=== PATIENT | male | born 1950 | race Two or more races ===

== ENCOUNTER 2018-04-06 18:24 | Inpatient (IN) | payer MEDICAID ==
[~2018-04-06] VITALS: Ht 160 cm; Wt 68.0 kg
[2018-04-06] MEDS ORDERED: levETIRAcetam 500 MG in D5W 110 ML IV ONE (18:45)
[2018-04-06] MEDS ORDERED: LORazepam Inj 2mg/ml 1ml IV ONE (18:45)
[2018-04-06] MEDS ORDERED: levETIRAcetam 1,000mg/NS100ml 100 ML IVPB ONE (18:45)
[2018-04-06 19:01] VITALS: BP 106/43
[2018-04-06 19:07] LABS: APPEARANCE,URINE CLEAR; BILIRUBIN, URINE NEGATIVE (NEGATIVE); COLOR,URINE PALE YELLOW; GLUCOSE, URINE (UA) NEGATIVE (NEGATIVE); KETONES,URINE NEGATIVE (NEGATIVE); LEUKOCYTE ESTERASE ,URINE NEGATIVE (NEGATIVE); NITRITE,URINE NEGATIVE (NEGATIVE); PH,URINE 6.5 (4.5-8.0); PROTEIN,URINE NEGATIVE (NEGATIVE); UROBILINOGEN,URINE NORMAL MG/DL (0.0-1.0)
[2018-04-06 19:17] LABS: BASOPHILS % (AUTO) 1.1 % (0.0-2.0); EOSINOPHILS % (AUTO) 0.8 % (0.0-3.0); HEMATOCRIT 30.3 % (42.0-52.0); HEMOGLOBIN 10.4 G/DL (14.2-18.0); MEAN CORPUSCULAR VOLUME 88 FL (80-99); MONOCYTES % (AUTO) 7.5 % (1.0-10.0); NEUTROPHILS % (AUTO) 61.6 % (45.0-75.0); PLATELET COUNT 245 K/UL (150-450); RED BLOOD COUNT 3.43 M/UL (4.70-6.10); WHITE BLOOD COUNT 5.5 K/UL (4.8-10.8)
[2018-04-06 19:27] LABS: ANION GAP 11 mmol/L (5-15); BLOOD UREA NITROGEN 21 mg/dL (7-18); CALCIUM 9.6 MG/DL (8.5-10.1); CARBON DIOXIDE 24 MMOL/L (21-32); CHLORIDE 99 MMOL/L (98-107); CREATININE 0.9 MG/DL (0.55-1.30); POTASSIUM 4.1 MMOL/L (3.5-5.1); SODIUM 134 MMOL/L (136-145)
[2018-04-06 19:34] LABS: ALANINE AMINOTRANSFERASE 16 U/L (12-78); ALBUMIN 3.9 G/DL (3.4-5.0); ALBUMIN/GLOBULIN RATIO 0.9 (1.0-2.7); ALKALINE PHOSPHATASE 79 U/L (46-116); ASPARTATE AMINO TRANSFERASE 16 U/L (15-37); BILIRUBIN,TOTAL 0.3 MG/DL (0.2-1.0); CREATINE KINASE 86 U/L (26-308)
--- NOTE | 2018-04-06 21:46 | Emergency Room Report ---
History of Present Illness General Chief Complaint: Seizure Source: Patient Present Illness HPI Mr. Garibay is 67 yo male with hx of seizure, CVA and head injury who presents with seizure activity greater than 15 minutes. He received 5 mg of versed per EMS. He was unable to give much hx . He insists on taking his normal pain medication. He is curreny a resident of [facility]. Allergies: Coded Allergies: No Known Allergies (Unverified , 04/06/18) Patient History Limited by: language barrier - nursing staff provided italian interpretation, age Past Surgical History: other - CVA, seizure, head injury Pertinent Family History: unable to obtain Social History Narrative UTO Reviewed Nursing Documentation: PMH: Agreed Nursing Documentation-PMH Past Medical History: No History, Except For Hx Seizures: Yes Review of Systems All Other Systems: limited - altered mental status Physical Exam Vital Signs Date Time Temp Pulse Resp B/P (MAP) Pulse Ox O2 Delivery O2 Flow Rate FiO2 04/06/18 18:19 97.5 108 18 120/72 99 Room Air 97.5 Sp02 EP Interpretation: reviewed, normal General Appearance: lethargic, other - head and eyes deviated to right with left arm myoclonic jerking with left hand flexing repetitively Eyes: bilateral eye normal inspection, bilateral eye PERRL ENT: dry mucus membranes Neck: normal inspection, full range of motion Respiratory: normal breath sounds, no rhonchi, no respiratory distress, no retraction, no accessory muscle use Cardiovascular #1: no gallop, no murmur, tachycardia Cardiovascular #2: 2+ radial (R), 2+ radial (L) Gastrointestinal: non tender, soft, no guarding Neurologic: responsive Psychiatric: other - poor insight Skin: other - warm to touch Procedures Critical Care Time Critical Care Time 40 minutes of critical care time excluding procedures were used in the care of the patient. Concerned for persistent seizure and possible respiratory depression. Patient required multiple assessments and interventions. Medical Decision Making Diagnostic Impression: Primary Impression: Seizure ER Course mr. Garibay presents with continued seizure activity. Eventually he became alert and conversant. Although he was only able to give limited hx. Still had left myoclonic jerking on left upper extremity. He received IV keppra and IV ativan. Will need further monitoring for prolonged seizure activity. Myoclonus eventually subsided. Findings of encephalomalacia, chronic subdural collection and craniotomy seen on CT. I suspect baseline cognitive dysfunction. Dr. Duke accepted patient on behalf of Dr. Kaiser. Labs Test 04/06/18 18:32 04/06/18 18:35 White Blood Count 5.5 K/UL (4.8-10.8) Red Blood Count 3.43 M/UL (4.70-6.10) Hemoglobin 10.4 G/DL (14.2-18.0) Hematocrit 30.3 % (42.0-52.0) Mean Corpuscular Volume 88 FL (80-99) Mean Corpuscular Hemoglobin 30.3 PG (27.0-31.0) Mean Corpuscular Hemoglobin Concent 34.4 G/DL (32.0-36.0) Red Cell Distribution Width 13.0 % (11.6-14.8) Platelet Count 245 K/UL (150-450) Mean Platelet Volume 7.2 FL (6.5-10.1) Neutrophils (%) (Auto) 61.6 % (45.0-75.0) Lymphocytes (%) (Auto) 29.0 % (20.0-45.0) Monocytes (%) (Auto) 7.5 % (1.0-10.0) Eosinophils (%) (Auto) 0.8 % (0.0-3.0) Basophils (%) (Auto) 1.1 % (0.0-2.0) Sodium Level 134 MMOL/L (136-145) Potassium Level 4.1 MMOL/L (3.5-5.1) Chloride Level 99 MMOL/L (98-107) Carbon Dioxide Level 24 MMOL/L (21-32) Anion Gap 11 mmol/L (5-15) Blood Urea Nitrogen 21 mg/dL (7-18) Creatinine 0.9 MG/DL (0.55-1.30) Estimat Glomerular Filtration Rate > 60 mL/min (>60) Glucose Level 88 MG/DL (74-106) Calcium Level 9.6 MG/DL (8.5-10.1) Total Bilirubin 0.3 MG/DL (0.2-1.0) Aspartate Amino Transf (AST/SGOT) 16 U/L (15-37) Alanine Aminotransferase (ALT/SGPT) 16 U/L (12-78) Alkaline Phosphatase 79 U/L (46-116) Total Creatine Kinase 86 U/L (26-308) Total Protein 8.2 G/DL (6.4-8.2) Albumin 3.9 G/DL (3.4-5.0) Globulin 4.3 g/dL Albumin/Globulin Ratio 0.9 (1.0-2.7) Salicylates Level 1.4 ug/mL (2.8-20) Acetaminophen Level < 2 MCG/ML (10-30) Phenytoin (Dilantin) Level < 0.5 ug/mL (10-20) Valproic Acid (Depakene) Level 5 MCG/ML (50-100) Phenobarbital Level 3.2 ug/mL (15-40) Serum Alcohol < 3 mg/dL Urine Color Pale yellow Urine Appearance Clear Urine pH 6.5 (4.5-8.0) Urine Specific [place] 1.010 (1.005-1.035) Urine Protein Negative (NEGATIVE) Urine Glucose (UA) Negative (NEGATIVE) Urine Ketones Negative (NEGATIVE) Urine Blood Negative (NEGATIVE) Urine Nitrite Negative (NEGATIVE) Urine Bilirubin Negative (NEGATIVE) Urine Urobilinogen Normal MG/DL (0.0-1.0) Urine Leukocyte Esterase Negative (NEGATIVE) Urine Opiates Screen Negative (NEGATIVE) Urine Barbiturates Screen Negative (NEGATIVE) Phencyclidine (PCP) Screen Negative (NEGATIVE) Urine Amphetamines Screen Negative (NEGATIVE) Urine Benzodiazepines Screen Negative (NEGATIVE) Urine Cocaine Screen Negative (NEGATIVE) Urine Marijuana (THC) Screen Negative (NEGATIVE) Lab Results Impression minimal levels of phenobarbital and valproic acid, normal electrolytes, normal WBC EKG Diagnostic Results EKG Time: 18:41 Rate: tachycardiac ST Segments: no acute changes Other Impression nl axis nl intervals no ST elevation Chest X-Ray Diagnostic Results Chest X-Ray Diagnostic Results : Chest X-Ray Ordered: Yes # of Views/Limited/Complete: 1 View Indication: Other - seizure Interpretation: no consolidation Impression: No acute disease - prominent vasculature no effusion no PTX no infiltrate Electronically Signed by: This image has been electronically signed by Dr. Clarissa Rowe Last Vital Signs Date Time Temp Pulse Resp B/P (MAP) Pulse Ox O2 Delivery O2 Flow Rate FiO2 04/06/18 19:01 98.0 100 22 106/43 100 98.0 04/06/18 18:30 Room Air Status: unchanged Disposition: ADMITTED INPATIENT Condition: Stable Referrals: NOT CHOSEN IPA/,REFERRING (PCP) Clarissa Rowe MD Apr 06, 2018 21:46
[2018-04-06] MEDS ORDERED: UNOBMED (21:58)
--- NOTE | 2018-04-06 21:59 | History and Physical ---
History of Present Illness General Date patient seen: Apr 06, 2018 Time patient seen: 22:33 Reason for Hospitalization: Seizure Present Illness HPI 67 yo man with h/o of seizure, CVA and head injury who presents with seizure activity greater than 15 minutes. He received 5 mg of versed per EMS. He was unable to give much history. He is requesting to take his normal pain medication. He received IV Keppra and IV lorazepam in the ED given residual left sided myoclonic jerking with resolution Findings of encephalomalacia, chronic subdural collection and craniotomy seen on CT (by report; no images or dictated report available) Patient drowsy and unable to give much of a history PMHx: CVA, head injury, cognitive impairment FHx: Unable to assess given patient's condition SHx: Unable to assess given patient's condition He is currently a resident of [facility]. Allergies: Coded Allergies: No Known Allergies (Unverified , 04/06/18) Medication History Miscellaneous Medications Unable to Obtain Medications (Unable To Obtain Meds), (Reported) Patient History Limited by: language barrier, medical condition History Provided By: Patient, Medical Record, EMS Healthcare decision maker Resuscitation status Advanced Directive on File Review of Systems Constitutional: Reports: malaise, weakness Eye: Reports: no symptoms ENT: Reports: no symptoms Respiratory: Reports: no symptoms Cardiovascular: Reports: no symptoms Gastrointestinal: Reports: no symptoms Genitourinary: Reports: no symptoms Musculoskeletal: Reports: no symptoms Skin: Reports: no symptoms Psychiatric: Reports: no symptoms Neurological: Reports: no symptoms Endocrine: Reports: no symptoms Hematologic/Lymphatic: Reports: no symptoms All Other Systems: negative except mentioned in HPI ROS Narrative Unable to assess secondary to patient's condition Physical Exam General Appearance: lethargic, thin Lines, tubes and drains: peripheral HEENT: normocephalic, atraumatic, anicteric, EOMI, pharynx normal, supple Neck: non-tender, supple Respiratory/Chest: chest wall non-tender, lungs clear Cardiovascular/Chest: normal peripheral pulses, normal rate, regular rhythm Abdomen: normal bowel sounds, non tender, soft Extremities: normal range of motion, non-tender Skin Exam: normal pigmentation, warm/dry Neurologic: alert Lymphatic: anterior cervical, posterior cervical (L) Musculoskeletal: atrophy Last 24 Hour Vital Signs Date Time Temp Pulse Resp B/P (MAP) Pulse Ox O2 Delivery O2 Flow Rate FiO2 04/06/18 19:01 98.0 100 22 106/43 100 98.0 04/06/18 18:30 99 22 Room Air 04/06/18 18:19 97.5 108 18 120/72 99 Room Air 97.5 Laboratory Tests Test 04/06/18 18:32 04/06/18 18:35 White Blood Count 5.5 K/UL (4.8-10.8) Red Blood Count 3.43 M/UL (4.70-6.10) L Hemoglobin 10.4 G/DL (14.2-18.0) L Hematocrit 30.3 % (42.0-52.0) L Mean Corpuscular Volume 88 FL (80-99) Mean Corpuscular Hemoglobin 30.3 PG (27.0-31.0) Mean Corpuscular Hemoglobin Concent 34.4 G/DL (32.0-36.0) Red Cell Distribution Width 13.0 % (11.6-14.8) Platelet Count 245 K/UL (150-450) Mean Platelet Volume 7.2 FL (6.5-10.1) Neutrophils (%) (Auto) 61.6 % (45.0-75.0) Lymphocytes (%) (Auto) 29.0 % (20.0-45.0) Monocytes (%) (Auto) 7.5 % (1.0-10.0) Eosinophils (%) (Auto) 0.8 % (0.0-3.0) Basophils (%) (Auto) 1.1 % (0.0-2.0) Sodium Level 134 MMOL/L (136-145) L Potassium Level 4.1 MMOL/L (3.5-5.1) Chloride Level 99 MMOL/L (98-107) Carbon Dioxide Level 24 MMOL/L (21-32) Anion Gap 11 mmol/L (5-15) Blood Urea Nitrogen 21 mg/dL (7-18) H Creatinine 0.9 MG/DL (0.55-1.30) Estimat Glomerular Filtration Rate > 60 mL/min (>60) Glucose Level 88 MG/DL (74-106) Calcium Level 9.6 MG/DL (8.5-10.1) Total Bilirubin 0.3 MG/DL (0.2-1.0) Aspartate Amino Transf (AST/SGOT) 16 U/L (15-37) Alanine Aminotransferase (ALT/SGPT) 16 U/L (12-78) Alkaline Phosphatase 79 U/L (46-116) Total Creatine Kinase 86 U/L (26-308) Total Protein 8.2 G/DL (6.4-8.2) Albumin 3.9 G/DL (3.4-5.0) Globulin 4.3 g/dL Albumin/Globulin Ratio 0.9 (1.0-2.7) L Salicylates Level 1.4 ug/mL (2.8-20) L Acetaminophen Level < 2 MCG/ML (10-30) L Phenytoin (Dilantin) Level < 0.5 ug/mL (10-20) L Valproic Acid (Depakene) Level 5 MCG/ML (50-100) L Phenobarbital Level 3.2 ug/mL (15-40) L Serum Alcohol < 3 mg/dL Urine Color Pale yellow Urine Appearance Clear Urine pH 6.5 (4.5-8.0) Urine Specific [place] 1.010 (1.005-1.035) Urine Protein Negative (NEGATIVE) Urine Glucose (UA) Negative (NEGATIVE) Urine Ketones Negative (NEGATIVE) Urine Blood Negative (NEGATIVE) Urine Nitrite Negative (NEGATIVE) Urine Bilirubin Negative (NEGATIVE) Urine Urobilinogen Normal MG/DL (0.0-1.0) Urine Leukocyte Esterase Negative (NEGATIVE) Urine Opiates Screen Negative (NEGATIVE) Urine Barbiturates Screen Negative (NEGATIVE) Phencyclidine (PCP) Screen Negative (NEGATIVE) Urine Amphetamines Screen Negative (NEGATIVE) Urine Benzodiazepines Screen Negative (NEGATIVE) Urine Cocaine Screen Negative (NEGATIVE) Urine Marijuana (THC) Screen Negative (NEGATIVE) Height (Feet): 5 Height (Inches): 3.00 Weight (Pounds): 150 Assessment/Plan Status: stable Status Narrative 67 yo man with h/o seizure disorder and CVA with generalized seizure witnessed in field by EMS Given versed in field and ativan/Keppra in field Assessment/Plan #Seizures, uncontrolled -s/p IV keppra load in ED -continue Keppra 500mg PO BID -Seizure precautions;Neuro checks Q4 -f/u CT head final report -Check lytes Utox negative #CVA, old 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[employer] #Cognitive impairment -unclear baseline -will attempt collateral information when patient more awake IVF's NPO for now given lethargy Code Status: Full Hospital Classification declaration: Based on this initial evaluation and depending on the patient's clinical course I anticipate that this patient will require hospitalization for at least 2-3 days Disposition: Once the patient is stable to leave the hospital I anticipate the patient will likely be discharged to the following environment: Home I spent 70 minutes on this patients care and 36 minutes was dedicated to counseling and care coordination Time of note may not reflect time of encounter Nagi Duke MD Apr 06, 2018 21:59
[2018-04-06 23:00] VITALS: BP 102/69
[2018-04-07] VITALS: BP 124/81
[2018-04-07] MEDS ORDERED: LORazepam Inj 2mg/ml 1ml IV PRN (00:45)
[2018-04-07 04:00] VITALS: BP 130/76
[2018-04-07 08:27] VITALS: BP 118/92
[2018-04-07] MEDS: Norco 5mg/325mg tab ORAL PRN ×3 (08:27→18:37)
[2018-04-07] MEDS: Heparin 5000 units/ml inj SUBQ SCH ×2 (08:38→21:14)
[2018-04-07 09:52] LABS: EOSINOPHILS % (AUTO) 1.4 % (0.0-3.0); HEMATOCRIT 31.8 % (42.0-52.0); HEMOGLOBIN 10.8 G/DL (14.2-18.0); LYMPHOCYTES % (AUTO) 24.1 % (20.0-45.0); MEAN CORPUSCULAR VOLUME 86 FL (80-99); MONOCYTES % (AUTO) 8.1 % (1.0-10.0); NEUTROPHILS % (AUTO) 65.4 % (45.0-75.0); PLATELET COUNT 232 K/UL (150-450); RED CELL DISTRIBUTION WIDTH 12.7 % (11.6-14.8); WHITE BLOOD COUNT 4.3 K/UL (4.8-10.8)
[2018-04-07 10:01] LABS: ANION GAP 8 mmol/L (5-15); BLOOD UREA NITROGEN 16 mg/dL (7-18); CALCIUM 9.2 MG/DL (8.5-10.1); CARBON DIOXIDE 26 MMOL/L (21-32); CHLORIDE 103 MMOL/L (98-107); CREATININE 0.7 MG/DL (0.55-1.30); POTASSIUM 3.9 MMOL/L (3.5-5.1); SODIUM 137 MMOL/L (136-145)
[2018-04-07 11:27] VITALS: BP 117/76
[2018-04-07 15:41] VITALS: BP 124/79
--- NOTE | 2018-04-07 17:25 | General Progress Note ---
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 Disposition: Once the patient is stable to leave the hospital, I anticipate the patient will likely be discharged to the following environment:SNF vs home with HH I spent 45 minutes on this patient's case, and *23 minutes was dedicated to counseling and/or care coordination. Time of note may not reflect time of encounter. Subjective Date patient seen: Apr 07, 2018 Time patient seen: 11:25 ROS Limited/Unobtainable: Yes Constitutional: Reports: no symptoms HEENT: Reports: no symptoms Cardiovascular: Reports: no symptoms Respiratory: Reports: no symptoms Gastrointestinal/Abdominal: Reports: no symptoms Genitourinary: Reports: no symptoms Neurologic/Psychiatric: Reports: no symptoms Endocrine: Reports: no symptoms Hematologic/Lymphatic: Reports: no symptoms Allergies: Coded Allergies: No Known Allergies (Unverified , 04/06/18) All Systems: reviewed and negative except above Subjective Events of overnight noted Chart reviewed Patient more alert this AM Notes pain where he fell in knee No chest pain or recurrent seizures Objective Last 24 Hour Vital Signs Date Time Temp Pulse Resp B/P (MAP) Pulse Ox O2 Delivery O2 Flow Rate FiO2 04/07/18 15:41 98.0 83 20 124/79 (94) 99 98.0 04/07/18 11:27 97.2 73 20 117/76 (90) 100 97.2 04/07/18 09:00 Room Air 04/07/18 08:27 98.8 93 20 118/92 (101) 99 98.8 04/07/18 04:00 97.5 75 18 130/76 (94) 99 97.5 04/07/18 00:00 96.6 70 19 124/81 (95) 100 96.6 04/06/18 23:47 Room Air 04/06/18 23:00 98.0 62 12 102/69 100 Room Air 208.4 04/06/18 23:00 98.0 62 12 102/69 100 Room Air 98.0 04/06/18 19:01 98.0 100 22 106/43 100 98.0 04/06/18 18:30 99 22 Room Air 04/06/18 18:19 97.5 108 18 120/72 99 Room Air 97.5 Laboratory Tests 04/06/18 18:32: White Blood Count 5.5, Red Blood Count 3.43L, Hemoglobin 10.4L, Hematocrit 30.3L , Mean Corpuscular Volume 88, Mean Corpuscular Hemoglobin 30.3, Mean Corpuscular Hemoglobin Concent 34.4, Red Cell Distribution Width 13.0, Platelet Count 245, Mean Platelet Volume 7.2, Neutrophils (%) (Auto) 61.6, Lymphocytes (% ) (Auto) 29.0, Monocytes (%) (Auto) 7.5, Eosinophils (%) (Auto) 0.8, Basophils ( %) (Auto) 1.1, Sodium Level 134L, Potassium Level 4.1, Chloride Level 99, Carbon Dioxide Level 24, Anion Gap 11, Blood Urea Nitrogen 21H, Creatinine 0.9, Estimat Glomerular Filtration Rate > 60, Glucose Level 88, Calcium Level 9.6, Total Bilirubin 0.3, Aspartate Amino Transf (AST/SGOT) 16, Alanine Aminotransferase (ALT/SGPT) 16, Alkaline Phosphatase 79, Total Creatine Kinase 86, Total Protein 8.2, Albumin 3.9, Globulin 4.3, Albumin/Globulin Ratio 0.9L, Salicylates Level 1.4L, Acetaminophen Level < 2L, Phenytoin (Dilantin) Level < 0.5L, Valproic Acid (Depakene) Level 5L, Phenobarbital Level 3.2L, Serum Alcohol < 3 04/06/18 18:35: Urine Color Pale yellow, Urine Appearance Clear, Urine pH 6.5, Urine Specific [place] 1.010, Urine Protein Negative, Urine Glucose (UA) Negative, Urine Ketones Negative, Urine Blood Negative, Urine Nitrite Negative, Urine Bilirubin Negative, Urine Urobilinogen Normal, Urine Leukocyte Esterase Negative, Urine Opiates Screen Negative, Urine Barbiturates Screen Negative, Phencyclidine (PCP ) Screen Negative, Urine Amphetamines Screen Negative, Urine Benzodiazepines Screen Negative, Urine Cocaine Screen Negative, Urine Marijuana (THC) Screen Negative 04/07/18 09:30: White Blood Count 4.3L, Red Blood Count 3.70L, Hemoglobin 10.8L, Hematocrit 31.8L, Mean Corpuscular Volume 86, Mean Corpuscular Hemoglobin 29.0, Mean Corpuscular Hemoglobin Concent 33.8, Red Cell Distribution Width 12.7, Platelet Count 232, Mean Platelet Volume 6.4L, Neutrophils (%) (Auto) 65.4, Lymphocytes ( %) (Auto) 24.1, Monocytes (%) (Auto) 8.1, Eosinophils (%) (Auto) 1.4, Basophils (%) (Auto) 1.0, Sodium Level 137, Potassium Level 3.9, Chloride Level 103, Carbon Dioxide Level 26, Anion Gap 8, Blood Urea Nitrogen 16, Creatinine 0.7, Estimat Glomerular Filtration Rate > 60, Glucose Level 111H, Calcium Level 9.2, Magnesium Level 1.9 Height (Feet): 5 Height (Inches): 3.00 Weight (Pounds): 150 General Appearance: no apparent distress, alert, thin EENT: PERRL/EOMI, normal ENT inspection, TMs normal, pharynx normal, pale conjunctivae Neck: non-tender, supple Cardiovascular: normal peripheral pulses, normal rate, regular rhythm Respiratory/Chest: chest wall non-tender, lungs clear, normal breath sounds Abdomen: normal bowel sounds, non tender, soft, no mass Pelvis: normal external exam Genitourinary/Rectal: normal genital exam Extremities: normal range of motion Edema: no edema noted Arm (L), no edema noted Arm (R) Edema: trace edema 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
[2018-04-07 20:00] VITALS: BP 134/89
[2018-04-07] MEDS: Hydromorphone 0.5mg/0.5ml inj IVP PRN (22:53)
[2018-04-08] VITALS: BP 122/72
[2018-04-08] MEDS: Norco 5mg/325mg tab ORAL PRN ×2 (01:18→05:51)
[2018-04-08 04:00] VITALS: BP 133/86
[2018-04-08 08:54] VITALS: BP 121/73
[2018-04-08] MEDS: Heparin 5000 units/ml inj SUBQ SCH ×2 (10:29→20:56)
[2018-04-08] MEDS: Hydromorphone 0.5mg/0.5ml inj IVP PRN ×3 (10:31→20:56)
[2018-04-08 12:00] VITALS: BP 149/60
[2018-04-08 16:00] VITALS: BP 134/76
[2018-04-08 20:00] VITALS: BP 113/72
--- NOTE | 2018-04-08 20:15 | General Progress Note ---
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 Disposition: Once the patient is stable to leave the hospital, I anticipate the patient will likely be discharged to the following environment:SNF vs home with HH I spent 45 minutes on this patient's case, and 23 minutes was dedicated to counseling and/or care coordination. Time of note may not reflect time of encounter. Subjective Date patient seen: Apr 08, 2018 Time patient seen: 12:00 ROS Limited/Unobtainable: Yes Constitutional: Reports: no symptoms HEENT: Reports: no symptoms Cardiovascular: Reports: no symptoms Respiratory: Reports: no symptoms Gastrointestinal/Abdominal: Reports: no symptoms Genitourinary: Reports: no symptoms Neurologic/Psychiatric: Reports: no symptoms Endocrine: Reports: no symptoms Hematologic/Lymphatic: Reports: no symptoms Allergies: Coded Allergies: No Known Allergies (Unverified , 04/06/18) All Systems: reviewed and negative except above Subjective Events of overnight noted Chart reviewed by me No further seizures Patient more alert this AM Objective Last 24 Hour Vital Signs Date Time Temp Pulse Resp B/P (MAP) Pulse Ox O2 Delivery O2 Flow Rate FiO2 04/08/18 16:00 98.6 76 18 134/76 (95) 99 98.6 04/08/18 16:00 98.6 04/08/18 15:30 97.7 04/08/18 12:00 97.7 75 18 149/60 (89) 99 97.7 04/08/18 10:31 97.3 04/08/18 09:00 Room Air 04/08/18 08:54 97.3 71 18 121/73 (89) 99 97.3 04/08/18 04:00 97.3 66 20 133/86 (102) 97 97.3 04/08/18 00:00 97.0 77 20 122/72 (89) 98 97.0 04/07/18 21:00 Room Air Intake and Output 04/07/18 04/08/18 19:00 07:00 Intake Total 960 ml 60 ml Output Total 600 ml Balance 360 ml 60 ml Intake Oral 960 ml 60 ml Output Urine Total 600 ml # Voids 2 Height (Feet): 5 Height (Inches): 3.00 Weight (Pounds): 150 General Appearance: no apparent distress, alert, thin EENT: PERRL/EOMI, normal ENT inspection, TMs normal Neck: non-tender, supple Cardiovascular: normal peripheral pulses, normal rate Respiratory/Chest: chest wall non-tender, lungs clear Abdomen: normal bowel sounds, non tender, soft Pelvis: normal external exam Edema: no edema noted Arm (L), no edema noted Arm (R), no edema noted Leg (L), no edema noted Leg (R) 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
[2018-04-09 00:29] VITALS: BP 126/60
[2018-04-09 04:00] VITALS: BP 122/66
[2018-04-09] MEDS: Norco 5mg/325mg tab ORAL PRN ×3 (05:42→17:51)
[2018-04-09 08:00] VITALS: BP 115/75
[2018-04-09 08:14] LABS: % IRON SATURATION 25 % (15-50); IRON 66 ug/dL (50-175); TOTAL IRON BINDING CAPACITY 262 ug/dL (250-450)
[2018-04-09] MEDS: Heparin 5000 units/ml inj SUBQ SCH (08:48)
--- NOTE | 2018-04-09 11:27 | Discharge Summary ---
Discharge Summary Hospital Course Date of Admission Apr 06, 2018 at 20:40 Date of Discharge 04/09/2018 Admitting Diagnosis seizure Reason for Hospitalization: Seizures, uncontolled HPI Marc Garibay is a 67 year old male who was admitted on Apr 06, 2018 at 20:40 for Seizures, uncontrolled He has a history of seizure, CVA and head injury who presented with seizure activity greater than 15 minutes. He received 5 mg of versed per EMS. He was unable to give much history. He received IV Keppra and IV lorazepam in the ED given residual left sided myoclonic jerking with resolution Findings of encephalomalacia, chronic subdural collection and craniotomy seen on CT Consultations Psychiatry Procedures None Hospital Course Patient improved with institution of antiepilpetic medications His mental status improved and patient was able to take medications by mouth without any difficulty No further seizures noted I spent 40 minutes conducting, coordinating and performing discharge activities on this patient Discharge Medications Continued Medications: Hydrocodone Bit/Acetaminophen 5-325* (Kennard 5-325*) 1 Each Tablet 1 TAB ORAL Q6H PRN for For Pain, #30 TAB 0 Refills (This prescription has been renewed) Levetiracetam* (Levetiracetam*) 500 Mg Tablet 500 MG ORAL TWICE A DAY, #60 TAB 0 Refills (This prescription has been renewed) Discontinued Medications: Levetiracetam* (Levetiracetam*) 100 Mg/1 Ml Solution 500 MG GT BID Unable to Obtain Medications (Unable To Obtain Meds) 1 Ea Ea Discharge Condition Upon Discharge: improving, stable Discharge Disposition Patient was discharged to home Discharge Diagnoses: (1) Seizure (2) CVA, old, ataxia Nagi Duke MD Apr 09, 2018 11:27
[2018-04-09 12:00] VITALS: BP 111/70
[2018-04-09 16:00] VITALS: BP 134/76
--- NOTE | 2018-04-09 19:35 | Consultation ---
History of Present Illness General Date patient seen: Apr 08, 2018 Chief Complaint: Seizure Present Illness HPI 67 yo man with h/o of seizure, CVA and head injury who presents with seizure activity. The pt has cognitive impairment and has anxiety and depressed mood and low energy Allergies: Coded Allergies: No Known Allergies (Unverified , 04/06/18) Medication History Miscellaneous Medications Unable to Obtain Medications (Unable To Obtain Meds), (Reported) Patient History Limited by: medical condition History Provided By: Patient, Medical Record, PMD Healthcare decision maker Resuscitation status Advanced Directive on File Past Medical/Surgical History Past Medical/Surgical History: (1) Seizure Review of Systems Psychiatric: Reports: prior hx, anxiety, depressed feelings Physical Exam General Appearance: no apparent distress, alert Neurologic: oriented x 3, responsive, depressed affect Last 24 Hour Vital Signs Date Time Temp Pulse Resp B/P (MAP) Pulse Ox O2 Delivery O2 Flow Rate FiO2 04/09/18 18:21 98.6 04/09/18 17:51 98.6 04/09/18 16:00 98.6 76 18 134/76 (95) 99 98.6 04/09/18 12:00 97.6 67 19 111/70 (84) 99 97.6 04/09/18 10:34 97.9 04/09/18 09:00 Room Air 04/09/18 08:00 97.9 71 19 115/75 (88) 96 97.9 04/09/18 04:00 98.1 72 19 122/66 (84) 97 98.1 04/09/18 00:29 97.5 77 19 126/60 (82) 98 97.5 04/08/18 21:00 Room Air 04/08/18 20:00 97.9 82 19 113/72 (86) 94 97.9 Intake and Output 04/08/18 04/09/18 19:00 07:00 Intake Total 450 ml 120 ml Output Total 500 ml Balance 450 ml -380 ml Intake Oral 120 ml Other 450 ml Output Urine Total 500 ml # Voids 3 2 Laboratory Tests Test 04/09/18 06:50 Iron Level 66 ug/dL (50-175) Total Iron Binding Capacity 262 ug/dL (250-450) Percent Iron Saturation 25 % (15-50) Unsaturated Iron Binding 196 ug/dL (112-346) Vitamin B12 Level 409 PG/ML (193-986) Folate 19.2 NG/ML (8.6-58.9) Thyroid Stimulating Hormone (TSH) 1.388 uiU/mL (0.358-3.740) Height (Feet): 5 Height (Inches): 3.00 Weight (Pounds): 150 Medications Current Medications Medications (Trade) Dose Ordered Sig/Tressa Route PRN Reason Start Time Stop Time Status Last Admin Dose Admin Acetaminophen (Tylenol) 650 mg Q4H PRN ORAL Mild Pain/Temp > 100.5 04/07/18 00:45 05/07/18 00:44 Acetaminophen/ Hydrocodone Bitart (English 5/325) 1 tab Q4H PRN ORAL Moderate Pain (Pain Scale 4-6) 04/07/18 00:45 04/14/18 00:44 04/09/18 17:51 Heparin Sodium (Porcine) (Heparin 5000 units/ml) 5,000 units EVERY 12 HOURS SUBQ 04/07/18 09:00 05/07/18 08:59 04/09/18 08:48 Hydromorphone HCl (Dilaudid) 0.5 mg Q4H PRN IVP Severe Breakthru Pain (>7) 04/07/18 22:15 04/14/18 22:14 04/08/18 20:56 Levetiracetam (Keppra) 500 mg BID ORAL 04/07/18 09:00 05/07/18 08:59 04/09/18 17:51 Lorazepam (Ativan 2mg/ml 1ml) 1 mg Q8H PRN IV For Seizures 04/07/18 00:45 04/14/18 00:44 Assessment/Plan Status: stable Assessment/Plan Anxiety d/o CVA Depressive d/o -Ativan prn -provided jesus/Federico Jin MD Apr 09, 2018 19:35
--- NOTE | 2018-04-09 19:36 | General Progress Note ---
Assessment/Plan Assessment/Plan Anxiety d/o CVA Depressive d/o -Ativan prn -provided ro/st Subjective Date patient seen: Apr 09, 2018 Neurologic/Psychiatric: Reports: anxiety, depressed, emotional problems Allergies: Coded Allergies: No Known Allergies (Unverified , 04/06/18) Objective Last 24 Hour Vital Signs Date Time Temp Pulse Resp B/P (MAP) Pulse Ox O2 Delivery O2 Flow Rate FiO2 04/09/18 18:21 98.6 04/09/18 17:51 98.6 04/09/18 16:00 98.6 76 18 134/76 (95) 99 98.6 04/09/18 12:00 97.6 67 19 111/70 (84) 99 97.6 04/09/18 10:34 97.9 04/09/18 09:00 Room Air 04/09/18 08:00 97.9 71 19 115/75 (88) 96 97.9 04/09/18 04:00 98.1 72 19 122/66 (84) 97 98.1 04/09/18 00:29 97.5 77 19 126/60 (82) 98 97.5 04/08/18 21:00 Room Air 04/08/18 20:00 97.9 82 19 113/72 (86) 94 97.9 Intake and Output 04/08/18 04/09/18 19:00 07:00 Intake Total 450 ml 120 ml Output Total 500 ml Balance 450 ml -380 ml Intake Oral 120 ml Other 450 ml Output Urine Total 500 ml # Voids 3 2 Laboratory Tests 04/09/18 06:50: Iron Level 66, Total Iron Binding Capacity 262, Percent Iron Saturation 25, Unsaturated Iron Binding 196, Vitamin B12 Level 409, Folate 19.2, Thyroid Stimulating Hormone (TSH) 1.388 Height (Feet): 5 Height (Inches): 3.00 Weight (Pounds): 150 General Appearance: no apparent distress, alert Neurologic: depressed affect Federico He MD Apr 09, 2018 19:36
[2018-04-09] MEDS ORDERED: LEVETIRACETAM500 MG ORAL (19:43)
[2018-04-09] MEDS ORDERED: NORCO 5-325 TA1 EACH ORAL (19:44)
[2018-04-09] MEDS ORDERED: LEVETIRACE100 MG/1 M GT (19:44)
--- NOTE | 2018-04-10 14:53 | Cardiology Report ---
APPROVED REPORT EKG Measurement Heart [id number] ME [id number] Normal sinus rhythm Normal ECG
== END 2018-04-09 20:35 | DRG 53 ==
LOC: EDBD 18:24 → EMR 18:45 → 4E 20:40 → EDBEDREQ 21:03
DX: R56.9 Unspecified convulsions (principal); F32.9 Major depressive disorder, single episode, unspecified; F41.9 Anxiety disorder, unspecified; I69.393 Ataxia following cerebral infarction
CPT/HCPCS: 36415; 70450; 71045; 80048; 80053; 80164; 80184; 80185; 80299; 80307; 80329; 81003; 82550; 82607; 82746; 83540; 83550; 83735; 84443; 85025; 93005; 96374; 96375; 99291